=== PATIENT | female | born 1995 | race Caucasian/White ===

== ENCOUNTER 2018-03-13 10:44 | Inpatient (IN) | payer BC ==
[~2018-03-13] VITALS: Ht 165.1 cm; Wt 84.5 kg
[~2018-03-13 10:44] MED LIST: PREN-3 PO
[2018-03-13 11:19] LABS: BASOPHILS # (AUTO) 0.04 x10^3/uL (0-0.1); BASOPHILS % (AUTO) 0 % (0-1); EOSINOPHILS # (AUTO) 0.06 x10^3/uL (0-0.4); EOSINOPHILS % (AUTO) 1 % (1-7); LYMPHOCYTES # (AUTO) 1.43 x10^3/uL (1-3.4); LYMPHOCYTES % (AUTO) 15 % (22-44); MD NO; MEAN CORPUSCULAR HEMOGLOBIN 29.1 pg (27.0-34.8); MEAN CORPUSCULAR HGB CONC 33.3 g/dL (32.4-35.8); MEAN CORPUSCULAR VOLUME 87.2 fL (80-100); MEAN PLATELET VOLUME 10.1 fL (7.4-10.4); MONOCYTES # (AUTO) 0.48 x10^3/uL (0.2-0.8); MONOCYTES % (AUTO) 5 % (2-9); NEUTROPHILS # (AUTO) 7.72 x10^3/uL (1.8-6.8); NEUTROPHILS % (AUTO) 79 % (42-75); PLATELET COUNT 115 x10^3/uL (130-400); RED BLOOD COUNT 3.85 x10^6/uL (3.82-5.3); RED CELL DISTRIBUTION WIDTH 13.4 % (9.6-15.2)
[2018-03-13 11:24] LABS: ALANINE AMINOTRANSFERASE 39 U/L (12-78); ALBUMIN 2.7 g/dL (3.4-5.0); ANION GAP 8 mmol/L (5-15); CALCIUM 8.3 mg/dL (8.5-10.1); CHLORIDE 107 mmol/L (98-107); CREATININE 0.81 mg/dL (0.55-1.02)
[2018-03-13 11:28] LABS: ALKALINE PHOSPHATASE 184 U/L (45-117); BILIRUBIN,TOTAL 0.6 mg/dL (0.2-1.0); TOTAL PROTEIN 6.6 g/dL (6.4-8.2)
[2018-03-13 11:34] LABS: MICROSCOPIC INDICATED
[2018-03-13] MEDS ORDERED: OXYTOCIN 30U/ 0.9% NaCL 500ML 500 ML IV PRN (12:02)
[2018-03-13] MEDS ORDERED: OXYTOCIN 30U/ 0.9% NaCL 500ML 500 ML IV ONE (12:02)
[2018-03-13] MEDS: LACTATED RINGERS 1,000 ML IV SCH ×2 (12:25→20:02)
[2018-03-13] MEDS ORDERED: FENTANYL PF 100 MCG/2ML IV PRN (12:30)
[2018-03-13] MEDS ORDERED: ONDANSETRON 2MG/ML, 2ML IVPush PRN (12:30)
[2018-03-13] MEDS ORDERED: FENTANYL PF 100 MCG/2ML IVPush PRN (12:30)
[2018-03-13 12:42] VITALS: BP 152/95
[2018-03-13] MEDS ORDERED: BETAMETHASONE 6 MG/ML, 5ML IM ONE (13:18)
[2018-03-13] MEDS ORDERED: MAGNESIUM SULF. PMX 20GM/500ML 500 ML IV ONE ×2 (13:18→21:56)
[2018-03-13] MEDS ORDERED: MISOPROSTOL 25 MCG TABLET ONE ×2 (13:19→18:06)
[2018-03-13] MEDS: BETAMETHASONE 6 MG/ML, 5ML IM SCH (13:25)
[2018-03-13] MEDS ORDERED: MAGNESIUM SULFATE PMX 4GM/100M 100 ML IVPB ONE (13:30)
[2018-03-13] MEDS ORDERED: MISOPROSTOL 25 MCG TABLET VG PRN (14:00)
[2018-03-13] MEDS: MAGNESIUM SULF. PMX 20GM/500ML 500 ML IV PRN ×2 (14:00→22:00)
[2018-03-13] MEDS ORDERED: NEWBORN KIT ONE (16:47)
[2018-03-13] MEDS ORDERED: AMPICILLIN 2 GM in SODIUM CHLORIDE 0.9% 100 ML IVPB STA (17:02)
[2018-03-13] MEDS ORDERED: CALCIUM CARBONATE 500 MG TAB.CHEW ONE ×2 (18:38→21:51)
[2018-03-13] MEDS: CALCIUM CARBONATE 500 MG TAB.CHEW PO PRN (18:41)
[2018-03-13] MEDS: D5%-LACTATED RINGERS 1,000 ML IV SCH (20:02)
[2018-03-13] MEDS ORDERED: OXYTOCIN 30U/ 0.9% NaCL 500ML 500 ML ONE (20:18)
[2018-03-13] MEDS: AMPICILLIN 1 GM in SODIUM CHLORIDE 0.9% 100 ML IV SCH (21:07)
[2018-03-14] MEDS: AMPICILLIN 1 GM in SODIUM CHLORIDE 0.9% 100 ML IV SCH ×6 (01:00→21:00)
[2018-03-14] MEDS: D5%-LACTATED RINGERS 1,000 ML IV SCH ×3 (04:02→15:26)
[2018-03-14] MEDS ORDERED: MAGNESIUM SULF. PMX 20GM/500ML 500 ML IV ONE ×2 (07:05→17:29)
[2018-03-14] MEDS: MAGNESIUM SULF. PMX 20GM/500ML 500 ML IV PRN ×2 (07:10→17:34)
[2018-03-14] MEDS: LACTATED RINGERS 1,000 ML IV SCH ×2 (07:11→12:02)
[2018-03-14 08:00] VITALS: BP 135/84
[2018-03-14 08:08] LABS: BASOPHILS # (AUTO) 0.04 x10^3/uL (0-0.1); BASOPHILS % (AUTO) 0 % (0-1); EOSINOPHILS % (AUTO) 0 % (1-7); LYMPHOCYTES # (AUTO) 1.32 x10^3/uL (1-3.4); LYMPHOCYTES % (AUTO) 8 % (22-44); MD NO; MEAN CORPUSCULAR HEMOGLOBIN 29.6 pg (27.0-34.8); MEAN CORPUSCULAR HGB CONC 33.8 g/dL (32.4-35.8); MEAN CORPUSCULAR VOLUME 87.6 fL (80-100); MEAN PLATELET VOLUME 10.4 fL (7.4-10.4); MONOCYTES # (AUTO) 0.47 x10^3/uL (0.2-0.8); MONOCYTES % (AUTO) 3 % (2-9); NEUTROPHILS % (AUTO) 89 % (42-75); PLATELET COUNT 147 x10^3/uL (130-400); RED BLOOD COUNT 4.14 x10^6/uL (3.82-5.3); RED CELL DISTRIBUTION WIDTH 13.2 % (9.6-15.2)
[2018-03-14 08:17] LABS: ALANINE AMINOTRANSFERASE 32 U/L (12-78); ALBUMIN 2.5 g/dL (3.4-5.0); ANION GAP 12 mmol/L (5-15); CALCIUM 7.1 mg/dL (8.5-10.1); CHLORIDE 104 mmol/L (98-107); CREATININE 0.87 mg/dL (0.55-1.02)
[2018-03-14 08:19] LABS: ALKALINE PHOSPHATASE 202 U/L (45-117); BILIRUBIN,TOTAL 0.2 mg/dL (0.2-1.0); TOTAL PROTEIN 6.5 g/dL (6.4-8.2)
[2018-03-14] MEDS ORDERED: FENTANYL/BUPIV./NS/PF 250 ML EPIDCONT ONE ×2 (11:19→11:20)
[2018-03-14] MEDS ORDERED: BUPIVACAINE/PF 0.25% ONE ×2 (11:19→17:56)
[2018-03-14] MEDS ORDERED: EPHEDRINE 50 MG/ML, 1ML ONE (11:20)
[2018-03-14] MEDS ORDERED: LIDOCAINE 1%, 20ML ONE (11:20)
[2018-03-14] MEDS ORDERED: FENTANYL PF 100 MCG/2ML ONE ×2 (11:20→17:57)
[2018-03-14 12:00] VITALS: BP 106/63
[2018-03-14] MEDS: BETAMETHASONE 6 MG/ML, 5ML IM SCH (14:37)
[2018-03-14] MEDS ORDERED: CALCIUM CARBONATE 500 MG TAB.CHEW ONE (17:03)
[2018-03-14] MEDS: CALCIUM CARBONATE 500 MG TAB.CHEW PO PRN (17:05)
[2018-03-14] MEDS ORDERED: MISOPROSTOL 200 MCG TABLET ONE (19:08)
[2018-03-14 19:10] LABS: MEAN CORPUSCULAR HEMOGLOBIN 29.8 pg (27.0-34.8); MEAN CORPUSCULAR HGB CONC 34.4 g/dL (32.4-35.8); MEAN CORPUSCULAR VOLUME 86.7 fL (80-100); MEAN PLATELET VOLUME 10.3 fL (7.4-10.4); PLATELET COUNT 137 x10^3/uL (130-400); RED CELL DISTRIBUTION WIDTH 13.4 % (9.6-15.2)
[2018-03-14] MEDS ORDERED: LIDOCAINE-MPF 1%, 5ML ONE (19:10)
[2018-03-14 19:11] LABS: MD YES
[2018-03-14 19:20] LABS: ALBUMIN 2.4 g/dL (3.4-5.0); ANION GAP 14 mmol/L (5-15); CALCIUM 6.8 mg/dL (8.5-10.1); CHLORIDE 103 mmol/L (98-107)
[2018-03-14 19:23] LABS: ALANINE AMINOTRANSFERASE 28 U/L (12-78); ALKALINE PHOSPHATASE 190 U/L (45-117); BILIRUBIN,TOTAL 0.4 mg/dL (0.2-1.0); CREATININE 0.92 mg/dL (0.55-1.02); TOTAL PROTEIN 6.2 g/dL (6.4-8.2)
[2018-03-14 19:40] LABS: <PLATELET ESTIMATE> ADEQUATE; <RBC MORPHOLOGY> NORMAL; BAND#(MANUAL) 0.67 x10^3/uL; BANDS%(MANUAL) 4 % (0-7); LYMPH#(MANUAL) 0.34 x10^3/uL (1-3.4); LYMPHS% (MANUAL) 2 % (22-44); SEG#(MANUAL) 15.79 x10^3/uL (1.8-6.8); SEGS% (MANUAL) 94 % (42-75)
[2018-03-14 19:41] LABS: <PLT MORPHOLOGY> NORMAL PLT MORPH
[2018-03-14] MEDS ORDERED: OXYTOCIN 30U/ 0.9% NaCL 500ML 500 ML ONE (20:03)
[2018-03-14] MEDS ORDERED: OXYTOCIN 30U/ 0.9% NaCL 500ML 500 ML IV SCH (20:09)
[2018-03-14] MEDS ORDERED: LACTATED RINGERS 1,000 ML IV SCH (20:27)
[2018-03-14] MEDS ORDERED: FENTANYL/BUPIV./NS/PF 250 ML EPIDCONT SCH (20:27)
[2018-03-14] MEDS ORDERED: NALOXONE 0.4 MG/ML, 1ML IVPush PRN (20:30)
[2018-03-14] MEDS ORDERED: BISACODYL 10 MG SUPP PR PRN (20:30)
[2018-03-14] MEDS ORDERED: ACETAMINOPHEN 325 MG TABLET PO PRN ×2 (20:30)
[2018-03-14] MEDS ORDERED: LACTATED RINGERS 1,000 ML IVBOLUS PRN (20:30)
[2018-03-14] MEDS ORDERED: OXYcodone/APAP 5/325MG TABLET PO PRN ×2 (20:30)
[2018-03-14] MEDS ORDERED: CARBOPROST TROMETHAMINE 250 MCG/ML, 1ML IM PRN (20:30)
[2018-03-14] MEDS ORDERED: MAGNESIUM HYDROXIDE 8%, 30ML UDC PO PRN (20:30)
[2018-03-14] MEDS ORDERED: CALCIUM CARBONATE 500 MG TAB.CHEW PO PRN (20:30)
[2018-03-14] MEDS ORDERED: MISOPROSTOL 200 MCG TABLET PR PRN ×2 (20:30→22:30)
[2018-03-14] MEDS ORDERED: METOCLOPRAMIDE 5 MG/ML, 2ML IV PRN (20:30)
[2018-03-14] MEDS ORDERED: GLYCERIN ADULT SUPP PR PRN (20:30)
[2018-03-14] MEDS ORDERED: ONDANSETRON 2MG/ML, 2ML IV PRN (20:30)
[2018-03-14] MEDS ORDERED: MEASLES,MUMPS&RUBELLA VACC/PF 0.5 ML SQ PRN (20:30)
[2018-03-14] MEDS ORDERED: EPHEDRINE 50 MG/ML, 1ML IVPush PRN (20:30)
[2018-03-14] MEDS ORDERED: DIPH,PERTUSS(ACELL),TET VAC/PF NC IM-VACC PRN (20:30)
[2018-03-14 23:46] VITALS: BP 136/87
[2018-03-15] VITALS (8 sets, daily range): BP systolic 112–143; BP diastolic 61–95
[2018-03-15] MEDS ORDERED: MAGNESIUM SULF. PMX 20GM/500ML 500 ML IV ONE ×2 (03:40→14:10)
[2018-03-15] MEDS: MAGNESIUM SULF. PMX 20GM/500ML 500 ML IV PRN ×2 (03:45→14:15)
[2018-03-15 06:20] LABS: MEAN CORPUSCULAR HEMOGLOBIN 30.1 pg (27.0-34.8); MEAN CORPUSCULAR HGB CONC 34.3 g/dL (32.4-35.8); MEAN CORPUSCULAR VOLUME 87.7 fL (80-100); MEAN PLATELET VOLUME 10.5 fL (7.4-10.4); PLATELET COUNT 133 x10^3/uL (130-400); RED BLOOD COUNT 3.73 x10^6/uL (3.82-5.3); RED CELL DISTRIBUTION WIDTH 13.5 % (9.6-15.2)
[2018-03-15] MEDS ORDERED: OXYcodone/APAP 5/325MG TABLET ONE (06:35)
[2018-03-15 06:38] LABS: ALANINE AMINOTRANSFERASE 23 U/L (12-78); ANION GAP 10 mmol/L (5-15); CALCIUM 6.4 mg/dL (8.5-10.1); CHLORIDE 109 mmol/L (98-107)
[2018-03-15 06:40] LABS: ALKALINE PHOSPHATASE 149 U/L (45-117); BILIRUBIN,TOTAL 0.1 mg/dL (0.2-1.0); TOTAL PROTEIN 5.4 g/dL (6.4-8.2)
[2018-03-15 06:48] LABS: BASOPHILS # (AUTO) 0.01 x10^3/uL (0-0.1); BASOPHILS % (AUTO) 0 % (0-1); EOSINOPHILS % (AUTO) 0 % (1-7); LYMPHOCYTES % (AUTO) 6 % (22-44); MD SCAN; MONOCYTES # (AUTO) 0.58 x10^3/uL (0.2-0.8); MONOCYTES % (AUTO) 3 % (2-9); NEUTROPHILS % (AUTO) 91 % (42-75)
[2018-03-15] MEDS ORDERED: DOCUSATE 100 MG CAPSULE ONE (11:11)
[2018-03-15] MEDS ORDERED: PRENATAL VIT/IRON/FA 1 EACH TABLET ONE (11:11)
[2018-03-15] MEDS: DOCUSATE 100 MG CAPSULE PO PRN (11:14)
[2018-03-15] MEDS: PRENATAL VIT/IRON/FA 1 EACH TABLET PO SCH (11:15)
[2018-03-15] MEDS ORDERED: IBUPROFEN 600 MG TABLET ONE (14:01)
[2018-03-15] MEDS ORDERED: IBUPROFEN 200 MG TABLET PO PRN (14:30)
[2018-03-16 00:30] VITALS: BP 131/75
[2018-03-16 04:00] VITALS: BP 126/75
[2018-03-16 08:00] VITALS: BP 130/88
[2018-03-16] MEDS: PRENATAL VIT/IRON/FA 1 EACH TABLET PO SCH (08:30)
[2018-03-16] MEDS: DOCUSATE 100 MG CAPSULE PO PRN (08:30)
[2018-03-16 12:26] VITALS: BP 137/81
== END 2018-03-16 16:17 | disposition home or self-care (01) | DRG 775 ==
LOC: LDOP 10:44 → LDIP 12:06 → 2NE 03-14 23:19 → 2NW 03-15 20:50
PROVIDERS: ADMIT Obstetrics & Gynecology; ATTEND Obstetrics & Gynecology
PROC: 10E0XZZ Delivery of Products of Conception, External Approach (ICD-10-PCS; principal; 2018-03-14)
PROC: 3E0234Z Introduction of Serum, Toxoid and Vaccine into Muscle, Percutaneous Approach (ICD-10-PCS; 2018-03-14)
DX: O99.824 Streptococcus B carrier state complicating childbirth (principal); O14.24 HELLP syndrome, complicating childbirth; O14.94 Unspecified pre-eclampsia, complicating childbirth; Z37.0 Single live birth; Z3A.35 35 weeks gestation of pregnancy; Z23 Encounter for immunization
CPT/HCPCS: 36415; 80053; 81001; 82570; 82803; 83735; 84156; 84550; 85025; 86850; 86900; 87081; 87086; J0290; J0702; J3010; J3490; J2590; J3475; J7120; J7121